=== PATIENT | female | born 1995 | race Caucasian/White ===

== ENCOUNTER 2022-05-03 05:59 | Day surgery (SDC) | payer MEDICAID ==
[~2022-05-03] VITALS: Ht 161.3 cm; Wt 90.7 kg
[~2022-05-03 05:59] MED LIST: ESCI10TA PO; OMEP40CA20 PO; [UNRECOGNIZED DRUG - CODE] PO
[2022-05-03] MEDS ORDERED: LACTATED RINGERS 1,000 ML IV SCH (06:30)
[2022-05-03 06:47] LABS: UCG SCREEN NEGATIVE
[2022-05-03] MEDS ORDERED: SKIN ADHESIVE 0.7 GM EA TOP ONE (06:53)
[2022-05-03] MEDS ORDERED: BUPIVACAINE HCL/PF 0.5% (5MG/ML) 10ML ONE (06:53)
[2022-05-03] MEDS ORDERED: SUCCINYLCHOLINE CHLORIDE 200MG/10ML IV ONE (07:21)
[2022-05-03] MEDS ORDERED: ROCURONIUM BROMIDE 10MG/ML VIAL 5ML IV ONE (07:21)
[2022-05-03] MEDS ORDERED: ONDANSETRON HCL 4MG/2ML INJ ONE (07:21)
[2022-05-03] MEDS ORDERED: DEXAMETHASONE 4MG/ML 1ML VIAL ONE (07:21)
[2022-05-03] MEDS ORDERED: MIDAZOLAM HCL 2 MG/2 ML VIAL ONE (07:22)
[2022-05-03] MEDS ORDERED: FENTANYL CITRATE/PF 50MCG/ML 2ML VIAL ONE (07:22)
[2022-05-03] MEDS ORDERED: GLYCOPYRROLATE 0.2 MG/ML 2ML VIAL ONE ×2 (07:22)
[2022-05-03] MEDS ORDERED: NEOSTIGMINE METHYLSULFATE 1MG/ML 10 ML VIAL ONE (07:22)
[2022-05-03] MEDS ORDERED: PROPOFOL 200MG/20ML VIAL IV ONE (08:10)
[2022-05-03] MEDS ORDERED: MEPERIDINE HCL/PF 25MG/ML CPJ IV PRN (08:15)
[2022-05-03] MEDS ORDERED: LABETALOL 5MG/ML SYR 20 MG/4 ML SYRINGE IV PRN (08:15)
[2022-05-03] MEDS ORDERED: ONDANSETRON HCL 4MG/2ML INJ IV PRN (08:15)
[2022-05-03] MEDS ORDERED: HYDROMORPHONE HCL/PF 2MG/ML CPJ IV PRN (08:15)
[2022-05-03] MEDS ORDERED: HYDROMORPHONE HCL/PF 2MG/ML CPJ ONE (08:25)
[2022-05-03] MEDS ORDERED: ACETAMINOPHEN WITH CODEINE 300/30MG TABLET PO PRN (10:00)
[2022-05-03 10:10] VITALS: BP 124/78
== END 2022-05-03 10:35 | disposition home or self-care (01) ==
LOC: OR 05:59
PROVIDERS: ATTEND Surgery
DX: K80.10 Calculus of gallbladder with chronic cholecystitis without obstruction (principal); F32.9 Major depressive disorder, single episode, unspecified; Z79.899 Other long term (current) drug therapy; Z98.890 Other specified postprocedural states; Z88.8 Allergy status to other drugs, medicaments and biological substances; Z20.822 Contact with and (suspected) exposure to COVID-19
CPT/HCPCS: 47562; 81025; 87426; 88304; C9803; J0330; J1100; J1170; J2250; J2405; J2704; J2710; J3010; J3490